=== PATIENT | male | born 1965 | race Caucasian/White ===

== ENCOUNTER 2017-01-05 17:28 | Inpatient (IN) | payer BC ==
[~2017-01-05] VITALS: Ht 175.3 cm; Wt 75.7 kg
--- NOTE | 2017-01-05 17:43 | NUR ---
PT RETURNED TO LOBBY PENDING ROOM AVAILABILITY. VSS. NO TREMORS VISIBLE. RESPS E/U. NO S/S OF DISTRESS NOTED. WILL CONTINUE TO MONITOR.
--- NOTE | 2017-01-05 18:48 | NUR ---
PT PRESENTS TO THE ED WITH THE SUBJECTIVE COMPLAINT TO DETOX FROM ALCOHOL. THE PT REPORTS THAT HIS LAST DRINK WAS APPROXIMATELY 3 HOURS AGO. THE PT DENIES ANY MEDICAL COMPLAINTS AT THIS TIME. PT IS BEING VERY COOPERATIVE WITH ED STAFF. MSE WAS COMPLETED BY DR. KOEHLER.
[2017-01-05 18:50] LABS: PLATELET COUNT 211 x10^3mcL (130-400)
[2017-01-05 18:51] LABS: RED CELL DISTRIBUTION WIDTH 15.6 % (11.5-14.5)
[2017-01-05 18:55] LABS: CALCIUM 8.5 mg/dL (8.5-10.1); CARBON DIOXIDE 28.2 mmol/L (21-32); CHLORIDE SERUM 106 mmol/L (98-107); CREATININE SERUM 0.9 mg/dL (0.7-1.3); GFR1 > 60 mL/min; GLUCOSE SERUM 119 mg/dL (74-106); POTASSIUM SERUM 3.8 mmol/L (3.5-5.1); SODIUM SERUM 147 mmol/L (136-145)
[2017-01-05 19:01] LABS: ALBUMIN 3.7 g/dL (3.4-5.0); ALKALINE PHOSPHATASE 104 U/L (46-116); ALT/SGPT 82 U/L (16-63); AST/SGOT 88 U/L (15-37); BILIRUBIN TOTAL 0.7 mg/dL (0.20-1.00); TOTAL PROTEIN, SERUM 7.5 g/dL (6.4-8.2)
--- NOTE | 2017-01-05 19:10 | NUR ---
REPORT GIVEN TO RISSA RHODES TO ASSUME CARE FOR THIS PT
--- NOTE | 2017-01-05 20:20 | NUR ---
CALLED REPORT TO FER KWOK FOR ADMISSION.
[2017-01-05] MEDS ORDERED: SIMVASTATIN20 M1 PO (20:28)
[2017-01-05] MEDS ORDERED: JANUVIA100 M1 PO (20:29)
[2017-01-05] MEDS ORDERED: GLIMEPIRIDE4 M1 PO (20:29)
--- NOTE | 2017-01-05 20:54 | NUR ---
RECEIVED PT FROM ER, PT ADMIT FOR SERVERE ALCOHOL INTOXICITION, PT IS A/O X4, VERBAL RESPONSIVE, BOTH ARM APPEAR STILL MILD SHAKING, LUNG SOUND CLEAR BILATERAL, NO COUGH, NO SOB, PT IS ON TELE 11, NSR, DENY ANY CHEST PAIN OR DISCOMFORT, BOWEL SOUND PRESENT ALL 4 QUADRANTS, NO DISTENTION, NO TENDER, PEDAL PULSE PRESENT BOTH FEET, NO EDEMA, IV AT LEFT FA, NO LEAKING, NO INFILTRATION. ALL ADLS ASSIST, ALL NEED MET, CALL LIGHT IN REACH, WILL CONINTUE TO MONITOR.
--- NOTE | 2017-01-05 20:59 | NUR ---
GUARDED PT TRANSPORTED ON MONITOR VIA GURNEY TO [facility] BY TESSA ARAGON, AND CARMELO KWOK. PT AAOX4, IN NAD, NO SOB, RR EVEN AND UNLABORED
[2017-01-05 21:09] LABS: CHOLESTEROL/HDL RATIO 1.7
[2017-01-05 21:13] LABS: T3 TOTAL 1.04 ng/mL
[2017-01-05 21:25] LABS: FREE T4 0.95 ng/dL (0.76-1.46); FREE THYROXINE INDEX 2.6 ug/dL (1.4-4.5); T4(THYROXINE) 8.2 ug/dL (4.7-13.3)
[2017-01-05] MEDS ORDERED: METFORMIN HCL500 MG PO (21:47)
[2017-01-05] MEDS ORDERED: PIOGLITAZONE HC30 MG PO (21:48)
[2017-01-05] MEDS ORDERED: ESCITALOPRAM10 M1 PO (21:48)
[2017-01-05] MEDS ORDERED: LANTUS SOLOS100 U/M1 SC (21:49)
[2017-01-05 21:54] LABS: MAGNESIUM 1.9 mg/dL (1.8-2.4); PHOSPHOROUS 3.9 mg/dL (2.5-4.9)
[2017-01-05 22:22] VITALS: BP 140/92
[2017-01-05 23:11] LABS: microscopic required? NO
[2017-01-05 23:21] LABS: UA SPECIFIC GRAVITY 1.015 (1.005-1.035); urine erythrocyte NEGATIVE (NEGATIVE)
[2017-01-05 23:29] LABS: AMPHETAMINE QUAL UR NONE DETECTED (NEG <=1000)
--- NOTE | 2017-01-06 04:00 | NUR ---
RESUMED CARE OF PT FROM FER KWOK. PT RESTING IN BED WITH EYES CLOSED,NO SIGNS OF PAIN AT THIS TIME. CALL LIGHT WITHIN REACH.
[2017-01-06 05:53] VITALS: BP 98/57
[2017-01-06 06:16] LABS: BASOPHIL % 0.6 % (0-2); PLATELET COUNT 159 x10^3mcL (130-400)
[2017-01-06 06:17] LABS: CALCIUM 7.5 mg/dL (8.5-10.1); CARBON DIOXIDE 26.9 mmol/L (21-32); CHLORIDE SERUM 106 mmol/L (98-107); CREATININE SERUM 0.8 mg/dL (0.7-1.3); GFR1 > 60 mL/min; PHOSPHOROUS 3.6 mg/dL (2.5-4.9); POTASSIUM SERUM 3.7 mmol/L (3.5-5.1); SODIUM SERUM 142 mmol/L (136-145)
--- NOTE | 2017-01-06 06:25 | NUR ---
PT RESTING IN BED WATCHING TV WITH NO C/O PAIN AT THIS TIME. CALL LIGHT WITHIN REACH. WILL ENDORSE TO DAY SHIFT.
[2017-01-06 06:43] LABS: GLUCOSE SERUM 57 mg/dL (74-106)
[2017-01-06 07:16] LABS: RED CELL DISTRIBUTION WIDTH 15.4 % (11.5-14.5)
--- NOTE | 2017-01-06 07:55 | NUR ---
AWAKE ALERT AND ORIENTED.C/O PAIN IN HIS LOWER BACK MEDICATED FOR PAIN ORDERED.CALL LIGHT W/ IN REACH. NOTED LITTLE TREMORS,DR. CHANDRA NOTIFIED W/ ORDERS RECIEVED TO GIVE ATIVAN X 1 ORDERS. GIVEN ORDERED. MADE PT. COMFORTABLE IN BED.CONT. IV FLUIDS ORDERED.VOIDING WELL IN URINAL.WILL CONT. PLAN OF CARE.
--- NOTE | 2017-01-06 08:10 | NUR ---
DR. CARVAJAL WAS HERE W/ OTHER MEDICAL STAFF MADE ROUNDS AND UPDATED PT. PLAN OF CARE.
[2017-01-06 09:32] VITALS: BP 104/64
[2017-01-06] MEDS ORDERED: ATIVAN1 MG PO (09:38)
--- NOTE | 2017-01-06 11:30 | NUR ---
CORAZON BERGER HERE W/ YANELISERS OK PT. TO HOWER TODAY AND OK PT TO GO HOME TODAY AFTER DR TUTTLE WILL SEE HIM. PT. MADE AWARE.DENIES ANY PAIN AT THIS TIME.
--- NOTE | 2017-01-06 15:25 | NUR ---
PT. C/O LOWER BACK PAIN MEDICATED FOR PAIN ORDERED.
--- NOTE | 2017-01-06 16:35 | NUR ---
PT. WENT HOME W/ STABLE CONDITION AMBULATORY ACC. W/ HIS FATHER IN LAW ,DISCHARGED INSTRUCTIONS AND PRESCRIPTION GIVEN AND DISCUSED TO PT. AND VERBALIZED UNDERSTANDING OF INSTRUCTIONS GIVEN NO ACUTE DISTRESS NOTED,ESCORTED DOWN IN THE LOBBY.
== END 2017-01-06 16:30 | disposition home or self-care (01) | DRG 896 ==
LOC: ED 17:28 → DU 19:54
PROVIDERS: Emergency Medicine; ADMIT Family Medicine
DX: F10.129 Alcohol abuse with intoxication, unspecified (principal); G92 Toxic encephalopathy; E87.0 Hyperosmolality and hypernatremia; Y90.1 Blood alcohol level of 20-39 mg/100 ml; E11.65 Type 2 diabetes mellitus with hyperglycemia; I10 Essential (primary) hypertension; E78.00 Pure hypercholesterolemia, unspecified; F17.209 Nicotine dependence, unspecified, with unspecified nicotine-induced disorders; Z53.29 Procedure and treatment not carried out because of patient's decision for other reasons; K76.0 Fatty (change of) liver, not elsewhere classified; F32.9 Major depressive disorder, single episode, unspecified; Z71.41 Alcohol abuse counseling and surveillance of alcoholic; Z79.4 Long term (current) use of insulin; Z83.79 Family history of other diseases of the digestive system
CPT/HCPCS: 80307; 83880; 84439; G0480; J2405; J3411; J3475; J3490; J7030; Q0092

== ENCOUNTER 2017-02-18 17:46 | Emergency (ER) | payer BC ==
[~2017-02-18] VITALS: Ht 175.3 cm; Wt 74.0 kg
[~2017-02-18 17:46] MED LIST: ATIVAN1 MG PO; ESCITALOPRAM10 M1 PO; GLIMEPIRIDE4 M1 PO; JANUVIA100 M1 PO; LANTUS SOLOS100 U/M1 SC; METFORMIN HCL500 MG PO; PIOGLITAZONE HC30 MG PO; SIMVASTATIN20 M1 PO
[2017-02-18 19:48] LABS: BASOPHIL % 1.2 % (0-2); PLATELET COUNT 219 x10^3mcL (130-400)
[2017-02-18 19:54] LABS: RED CELL DISTRIBUTION WIDTH 14.8 % (11.5-14.5)
[2017-02-18 19:55] LABS: CALCIUM 8.1 mg/dL (8.5-10.1); CARBON DIOXIDE 26.4 mmol/L (21-32); CHLORIDE SERUM 106 mmol/L (98-107); CREATININE SERUM 0.8 mg/dL (0.7-1.3); GFR1 > 60 mL/min; GLUCOSE SERUM 178 mg/dL (74-106); POTASSIUM SERUM 3.8 mmol/L (3.5-5.1); SODIUM SERUM 143 mmol/L (136-145)
[2017-02-18 20:01] LABS: ALBUMIN 3.5 g/dL (3.4-5.0); ALKALINE PHOSPHATASE 97 U/L (46-116); ALT/SGPT 64 U/L (16-63); AST/SGOT 62 U/L (15-37); BILIRUBIN TOTAL 0.35 mg/dL (0.20-1.00); TOTAL PROTEIN, SERUM 7.1 g/dL (6.4-8.2)
[2017-02-18 20:43] LABS: UA SPECIFIC GRAVITY >=1.030 (1.005-1.035); microscopic required? YES; urine erythrocyte TRACE (NEGATIVE)
[2017-02-18 20:51] LABS: AMPHETAMINE QUAL UR NONE DETECTED (NEG <=1000)
[2017-02-19 05:51] VITALS: BP 106/73
== END 2017-02-19 05:51 | disposition home or self-care (01) ==
LOC: ED 17:46
PROVIDERS: Specialist
DX: F10.20 Alcohol dependence, uncomplicated (principal); E11.9 Type 2 diabetes mellitus without complications
CPT/HCPCS: 80307; G0480; J2060; J2405; J3411; J3475; J3490; J7030

== ENCOUNTER 2017-08-09 15:35 | Emergency (ER) | payer BC ==
[~2017-08-09] VITALS: Ht 175.3 cm; Wt 77.1 kg
[2017-08-09 15:36] VITALS: BP 139/97
[2017-08-09 17:42] LABS: BASOPHIL % 0.4 % (0-2); PLATELET COUNT 134 x10^3mcL (130-400); RED CELL DISTRIBUTION WIDTH 14.7 % (11.5-14.5)
[2017-08-09 17:46] LABS: CALCIUM 8.5 mg/dL (8.5-10.1); CARBON DIOXIDE 27.6 mmol/L (21-32); CHLORIDE SERUM 99 mmol/L (98-107); CREATININE SERUM 0.8 mg/dL (0.7-1.3); GFR1 > 60 mL/min; GLUCOSE SERUM 235 mg/dL (74-106); POTASSIUM SERUM 4.1 mmol/L (3.5-5.1); SODIUM SERUM 139 mmol/L (136-145)
[2017-08-09 17:51] LABS: ALBUMIN 3.8 g/dL (3.4-5.0); ALKALINE PHOSPHATASE 106 U/L (46-116); ALT/SGPT 284 U/L (16-63); AST/SGOT 391 U/L (15-37); LIPASE 60 IU/L (73-393); TOTAL PROTEIN, SERUM 7.7 g/dL (6.4-8.2)
== END 2017-08-09 19:10 | disposition left against medical advice (07) ==
LOC: ED 15:35
PROVIDERS: Emergency Medicine
PROC: BW28ZZZ Computerized Tomography (CT Scan) of Head (ICD-10-PCS; principal; 2017-08-09)
PROC: BR20ZZZ Computerized Tomography (CT Scan) of Cervical Spine (ICD-10-PCS; 2017-08-09)
DX: F10.129 Alcohol abuse with intoxication, unspecified (principal); E87.2 Acidosis; S09.90XA Unspecified injury of head, initial encounter; X58.XXXA Exposure to other specified factors, initial encounter; Y92.9 Unspecified place or not applicable
CPT/HCPCS: G0480; J3411; J3475; J3490; J7030